=== PATIENT | male | born 1970 | race African-American/Black ===

== ENCOUNTER 2018-07-08 08:46 | Emergency (ER) | payer SELFPAY, OTHER ==
[~2018-07-08] VITALS: Ht 170.2 cm; Wt 77.1 kg
[2018-07-08 08:57] VITALS: BP 124/75
[2018-07-08] MEDS ORDERED: ACETAMINOPHEN-1 EAC1 ORAL (10:19)
[2018-07-08 10:25] VITALS: BP 118/70
--- NOTE | 2018-07-08 11:38 | Diagnostic Imaging Report ---
Indication: Pain Findings: 2 views of the right humerus were obtained. There is a subacute fracture comminuted involving the distal shaft of the humerus. There is a callus and new bone formation about the fracture. IMPRESSION: Subacute comminuted fracture distal humerus
--- NOTE | 2018-07-08 11:39 | Diagnostic Imaging Report ---
Indication: Right shoulder pain Findings: 3 views of the right shoulder were obtained. No acute fractures, malalignment, erosions or periostitis are identified. Soft tissues are unremarkable. Impression: Negative for acute injury There is a fracture involving the lower shaft of the humerus described on a different report
--- NOTE | 2018-07-08 12:43 | Emergency Room Report ---
History of Present Illness General Chief Complaint: Medical Clearance Source: Patient, Law Enforcement Present Illness HPI 48-year-old male presents ED for evaluation. Brought in by [employer] for senior care clearance. States he's having right shoulder/arm pain. Denies any fall or injury today. However states that he broke his humerus a few weeks ago. Was seen at another hospital. States management is currently nonoperative but states pain was exacerbated today. Pain is 10 out of 10, sharp, nonradiating. Denies any other injuries. No other aggravating relieving factors. Denies any other associated symptoms Allergies: Coded Allergies: No Known Allergies (Unverified , 07/08/18) Patient History Past Medical History: other Past Surgical History: none Pertinent Family History: none Social History: Denies: smoking, alcohol use, drug use Immunizations: UTD Reviewed Nursing Documentation: PMH: Agreed; PSxH: Agreed Nursing Documentation-PMH Hx Cancer: Yes - synovial Review of Systems All Other Systems: negative except mentioned in HPI Physical Exam Vital Signs Date Time Temp Pulse Resp B/P (MAP) Pulse Ox O2 Delivery O2 Flow Rate FiO2 07/08/18 08:48 98.2 65 20 124/75 (91) 98 Room Air Sp02 EP Interpretation: reviewed, normal General Appearance: no apparent distress, alert, GCS 15, non-toxic Head: normocephalic Eyes: bilateral eye normal inspection, bilateral eye PERRL ENT: normal ENT inspection Neck: normal inspection Respiratory: normal inspection Cardiovascular #1: normal inspection Gastrointestinal: normal inspection Rectal: deferred Genitourinary: no CVA tenderness Musculoskeletal: decreased range of motion, tender - R humerus Neurologic: alert, oriented x3, responsive, motor strength/tone normal, sensory intact, speech normal Psychiatric: normal inspection Skin: normal inspection Lymphatic: normal inspection Procedures Splinting Splinting : Consent: Verbal Pre-Made Type: sling Pre-Proc Neuro Vasc Exam: normal Post-Proc Neuro Vasc Exam: normal Patient Tolerated: Well Complications: None Medical Decision Making Diagnostic Impression: Primary Impression: Humeral shaft fracture Qualified Codes: S42.354D - Nondisplaced comminuted fracture of shaft of humerus, right arm, subsequent encounter for fracture with routine healing Additional Impression: Medical clearance for incarceration ER Course Hospital Course 48-year-old M presents to ED complaining of R arm pain. recent humerus fx. in police custody Differential diagnoses include: Fracture, dislocation, sprain, contusion Clinical course Patient placed on stretcher. After initial history and physical, I ordered xrays of R shoulder, R humerus X-ray show healing fracture of the right humerus. Placed in shoulder slings. Discussed findings with patient. Medication is medically clear for incarceration. We'll also provide ortho referrals Diagnosis - humeral shaft fracture, medical clearance for incarceration Stable and discharged to home with prescription for tylenol #3. weight bear as tolerated. Followup with ortho. Return to ED if symptoms recur or worsen Other X-Ray Diagnostic Results Other X-Ray Diagnostic Results #1: X-Ray ordered: R shoulder # of Views/Limited Vs Complete: 3 View Indication: Pain EP Interpretation: Yes Interpretation: no dislocation, no soft tissue swelling, no fractures Impression: No acute disease Electronically Signed by: Electronically signed by Conner Dawson MD Other X-Ray Diagnostic Results #2: X-Ray ordered: R humerus # of Views/Limited Vs Complete: 2 View Indication: Pain EP Interpretation: Yes Interpretation: no dislocation, no soft tissue swelling, other - comminuted healing humerus fx Impression: Other - humerus fx Electronically Signed by: Electronically signed by Conner Dawson MD Last Vital Signs Date Time Temp Pulse Resp B/P (MAP) Pulse Ox O2 Delivery O2 Flow Rate FiO2 07/08/18 10:25 97.9 70 15 118/70 99 Room Air Status: improved Disposition: D/C TO LAW ENFORCEMENT IN [facility]UST Condition: Stable Scripts Acetaminophen With Codeine (T#3) (TYLENOL #3 TAB*) Y Tab 1 TAB ORAL Q8H PRN for For Pain, #10 TAB Prov: Conner Dawson MD 07/08/18 [facility]: [facility] Open 24 hour /7 days a week by Appointment Only [address] [facility] [id number] Departure Forms: Correction Clearance Patient Instructions: Humerus Fracture Treated With Immobilization, Easy-to- Read Conner Dawson MD July 08, 2018 12:43
== END 2018-07-08 10:25 ==
LOC: EMR 09:30
DX: S42.354D Nondisplaced comminuted fracture of shaft of humerus, right arm, subsequent encounter for fracture with routine healing (principal); X58.XXXD Exposure to other specified factors, subsequent encounter; Z02.89 Encounter for other administrative examinations; Z85.89 Personal history of malignant neoplasm of other organs and systems
CPT/HCPCS: 99284